=== PATIENT | male | born 1990 | race Caucasian/White ===

== ENCOUNTER → 2016-11-14 | Outpatient (REF) | payer OTHER, SELFPAY | LOC: M SMT 11:00 | PROVIDERS: ATTEND Urology | DX: Z30.2 Encounter for sterilization (principal) ==

== ENCOUNTER → 2017-01-22 | Outpatient (REF) | payer OTHER ==
[2017-01-22 10:08] LABS: IMMMOTILE SPERM CENTRIFUGED ABSENT (ABSENT); IMMOTILE SPERM ABSENT (ABSENT); MOTILE SPERM ABSENT (ABSENT); MOTILE SPERM CENTRIFUGED ABSENT (ABSENT)
== END ==
LOC: M SMT 09:39
PROVIDERS: ATTEND Urology
DX: Z30.2 Encounter for sterilization (principal)

== ENCOUNTER → 2019-06-18 | Outpatient (REF) | payer OTHER, BC ==
[2019-06-18 14:01] LABS: SEMEN APPEARANCE OPAQUE (OPAQUE); SEMEN VISCOSITY LIQUID (LIQUID); SEMEN pH 8.5 (7.0-8.0); WBC CONCENTRATION >1 M/ml (<=1 M/ml)
== END ==
LOC: M SMT 13:34
PROVIDERS: ATTEND Nurse Practitioner Women's Health
DX: Z30.2 Encounter for sterilization (principal)

== ENCOUNTER → 2019-09-11 | Outpatient (CLI) | payer OTHER ==
--- NOTE | 2019-09-11 13:54 | REP ---
MRI left shoulder without contrast: History: Pain in the left shoulder. No comparison imaging. Technique: Axial, oblique coronal and oblique sagittal imaging planes were utilized. T1 and T2-weighted scans were included with and without fat saturation. MRI findings: There is mild subcortical cyst formation in the superolateral humeral head. Acromioclavicular and glenohumeral joints are normally aligned. There is a small sliver of subacromial subdeltoid bursal fluid. Some thickening and increased signal intensity is seen diffusely in the supraspinatus tendon consistent with tendonitis tendinosis change. The infraspinatus, subscapularis, and biceps tendons have an intact appearance. There is redundant labral material along the anterior cartilaginous labrum in the anterior inferior quadrant on T2-weighted images. An anterior cartilaginous labral tear is suspected with some displacement. The posterior labrum appears to be intact. There is no visible superior labral tear. Skeletal muscle is normal in signal intensity and contour about the left shoulder. Impression: 1. Tendonitis tendinosis change in the distal supraspinatus. 2. Hypertrophied redundant anterior labral cartilage deformity in the anterior inferior quadrant of the joint suggestive of labral disruption. 3. Small sliver of subacromial subdeltoid bursal fluid. Electronically Signed by Oniel Hernandez MD 09/11/2019 01:55 P
== END ==
LOC: M RAD 10:39
PROVIDERS: ATTEND Physician Assistant Medical
DX: M75.82 Other shoulder lesions, left shoulder (principal)

== ENCOUNTER 2023-01-31 13:56 | Emergency (ER) | payer BC, OTHER ==
[~2023-01-31] VITALS: Ht 177.8 cm; Wt 109.5 kg
[2023-01-31 13:58] VITALS: BP 128/87
[2023-01-31] MEDS ORDERED: BOOSTRIX VACCINE (TETANUS/DIPHTH/ACEL. PERTUSSIS) 0.5ML SYR IM ONE (15:05)
== END 2023-01-31 15:28 | disposition home or self-care (01) ==
LOC: M ED 13:56
DX: S01.01XA Laceration without foreign body of scalp, initial encounter (principal); S00.03XA Contusion of scalp, initial encounter; W22.8XXA Striking against or struck by other objects, initial encounter; Y92.009 Unspecified place in unspecified non-institutional (private) residence as the place of occurrence of the external cause

== ENCOUNTER → 2024-08-31 | Outpatient (CLI) | payer OTHER | LOC: M LAB 16:24 | PROVIDERS: ATTEND Registered Nurse | DX: Z98.52 Vasectomy status (principal) ==

== ENCOUNTER → 2024-09-01 | Outpatient (REF) | payer OTHER | LOC: M LAB REF 10:46 | PROVIDERS: ATTEND Registered Nurse | DX: Z30.8 Encounter for other contraceptive management (principal) ==

== ENCOUNTER → 2024-10-15 | Outpatient (REF) | payer OTHER, BC ==
[2024-10-15 12:01] LABS: SEMEN APPEARANCE OPAQUE (OPAQUE); SEMEN VISCOSITY LIQUID (LIQUID); SEMEN VOLUME 1.3 ml (2.0-5.0)
[2024-10-15 12:02] LABS: SEMEN pH 8.5 (7.0-8.0); WBC CONCENTRATION <=1 M/ml (<=1 M/ml)
== END ==
LOC: M LAB REF 11:10
PROVIDERS: ATTEND Physician Assistant
DX: Z30.09 Encounter for other general counseling and advice on contraception (principal)

== ENCOUNTER → 2024-10-21 | Outpatient (REF) | payer OTHER, BC | LOC: M SMT 09:09 | PROVIDERS: ATTEND Physician Assistant | DX: Z98.52 Vasectomy status (principal) ==

== ENCOUNTER → 2024-10-28 | Outpatient (REF) | payer OTHER, BC ==
[2024-10-28 11:51] LABS: SEMEN APPEARANCE OPAQUE (OPAQUE); SEMEN VISCOSITY VISCOUS (LIQUID); SEMEN pH 8.5 (7.0-8.0); WBC CONCENTRATION >1 M/ml (<=1 M/ml)
== END ==
LOC: M SMT 10:30
PROVIDERS: ATTEND Urology
DX: Z30.8 Encounter for other contraceptive management (principal)

== ENCOUNTER → 2025-05-10 | Outpatient (CLI) | payer OTHER, BC | LOC: M RAD 07:41 | PROVIDERS: ATTEND Nurse Practitioner Family | DX: K40.90 Unilateral inguinal hernia, without obstruction or gangrene, not specified as recurrent (principal) ==

== ENCOUNTER 2025-06-10 10:34 | Day surgery (SDC) | payer OTHER ==
[~2025-06-10] VITALS: Ht 177.8 cm; Wt 97.0 kg
[~2025-06-10 10:34] MED LIST: ACET32TAB PO
[2025-06-10] MEDS ORDERED: LIDOCAINE 1% SDV 5 ML VIAL SC PRN (10:55)
[2025-06-10] MEDS ORDERED: ONDANSETRON 4MG 2ML VIAL As Ordered ONE (11:07)
[2025-06-10] MEDS ORDERED: ROCURONIUM BROMIDE 50MG/5ML VIAL As Ordered ONE (11:07)
[2025-06-10] MEDS ORDERED: SUGAMMADEX SODIUM 500 MG/5 ML VIAL As Ordered ONE (11:07)
[2025-06-10] MEDS ORDERED: LIDOCAINE 2% 100 MG/5 ML SDV (FOR ANES.) As Ordered ONE (11:07)
[2025-06-10] MEDS ORDERED: MIDAZOLAM INJ 2 MG/2 ML VIAL As Ordered ONE (11:07)
[2025-06-10] MEDS ORDERED: KETOROLAC 30 MG/ML 1 ML VIAL As Ordered ONE (11:07)
[2025-06-10] MEDS ORDERED: dexAMETHasone 4 MG/ML 1 ML VIAL As Ordered ONE (11:07)
[2025-06-10] MEDS ORDERED: ACETAMINOPHEN 1000MG/100ML IV BAG As Ordered ONE (11:08)
[2025-06-10] MEDS: LR 1,000 ML IV SCH (11:36)
[2025-06-10] MEDS ORDERED: GLYCOPYRROLATE INJ 0.2 MG/ML 2 ML VIAL As Ordered ONE (12:35)
[2025-06-10 12:39] LABS: PLATELET COUNT, AUTOMATED 159 10^3/uL (150-450)
[2025-06-10] MEDS: ceFAZolin SOD 2 GM IV ONCE IV ONE (12:55)
[2025-06-10] MEDS ORDERED: HYDROmorphone HCL 2 MG/ML 1 ML VIAL As Ordered ONE (13:15)
[2025-06-10] MEDS ORDERED: ESMOLOL 100 MG/10 ML VIAL As Ordered ONE (13:30)
[2025-06-10] MEDS ORDERED: HYDROMORPHONE HCL 0.5 MG/0.5 ML SYRINGE IV PRN (13:50)
[2025-06-10] MEDS ORDERED: LR 1,000 ML IV SCH (13:50)
[2025-06-10] MEDS ORDERED: ONDANSETRON 4MG 2ML VIAL IV PRN (13:50)
[2025-06-10 15:30] VITALS: BP 138/82; TEMP 96.8; O2SAT 95
== END 2025-06-10 15:45 | disposition home or self-care (01) ==
LOC: M SDC 10:34
PROVIDERS: ATTEND Surgery
DX: K50.90 Crohn's disease, unspecified, without complications (principal)
CPT/HCPCS: 36415; 49650; 85027; C1781; J0131; J0665; J0688; J1100; J1171; J1596; J1805; J1885; J2250; J2405; J3010; S2900